=== PATIENT | male | born 1995 | race Two or more races ===

== ENCOUNTER 2016-09-17 17:11 | Emergency (ER) | payer MEDICAID ==
[~2016-09-17] VITALS: Ht 167.6 cm; Wt 84.8 kg
[2016-09-17 17:30] VITALS: BP 112/56
[2016-09-17] MEDS ORDERED: ONDANSETRON ODT 4 MG TAB PO ONE (19:30)
== END 2016-09-17 20:25 | disposition home or self-care (01) ==
LOC: ER 17:18
DX: S93.402A Sprain of unspecified ligament of left ankle, initial encounter (principal); R51 Headache; X50.1XXA Overexertion from prolonged static or awkward postures, initial encounter; Y93.89 Activity, other specified; Y99.8 Other external cause status; Y92.89 Other specified places as the place of occurrence of the external cause; Z88.0 Allergy status to penicillin
CPT/HCPCS: 29515; 73610; 82962; 99284; Q0162